=== PATIENT | male | born 1950 | race Caucasian/White ===

== ENCOUNTER 2017-10-16 14:11 | Outpatient (CLI) | payer SELFPAY ==
[2017-10-16 18:12] LABS: INR 1.1 (0.8-1.2); PT - PROTHROMBIN TIME 12.8 secs (9.9-12.6)
== END 2017-10-16 14:12 | disposition home or self-care (01) ==
LOC: LAB.F 14:11
PROVIDERS: ATTEND Naturopath
DX: I82.492 Acute embolism and thrombosis of other specified deep vein of left lower extremity (principal)
CPT/HCPCS: 36415; 85610

== ENCOUNTER 2017-10-23 14:14 | Outpatient (CLI) | payer SELFPAY | END 2017-10-23 14:15 | disposition home or self-care (01) | LOC: LAB.F 14:14 | PROVIDERS: ATTEND Naturopath | DX: I82.492 Acute embolism and thrombosis of other specified deep vein of left lower extremity (principal) | CPT/HCPCS: 85610 ==

== ENCOUNTER 2017-10-30 10:13 | Outpatient (CLI) | payer SELFPAY | END 2017-10-30 10:14 | disposition home or self-care (01) | LOC: LAB.F 10:13 | PROVIDERS: ATTEND Naturopath | DX: I82.492 Acute embolism and thrombosis of other specified deep vein of left lower extremity (principal) | CPT/HCPCS: 85610 ==